=== PATIENT | female | born 1970 | race Caucasian/White ===

== ENCOUNTER → 2018-06-29 | Outpatient (CLI) | payer OTHER | END | disposition home or self-care (01) | LOC: CFH 14:47 | PROVIDERS: ATTEND Specialist | DX: Z12.31 Encounter for screening mammogram for malignant neoplasm of breast (principal) | CPT/HCPCS: 77063; 77067 ==

== ENCOUNTER → 2019-08-15 | Outpatient (CLI) | payer OTHER | END | disposition home or self-care (01) | LOC: CFH 13:25 | PROVIDERS: ATTEND Genetic Counselor, MS | DX: R92.2 Inconclusive mammogram (principal) | CPT/HCPCS: 76642; 77066; G0279 ==

== ENCOUNTER → 2021-05-14 | Outpatient (CLI) | payer OTHER | END | disposition home or self-care (01) | LOC: CVU 14:44 | PROVIDERS: ATTEND Nurse Practitioner Family | DX: I36.1 Nonrheumatic tricuspid (valve) insufficiency (principal); R00.2 Palpitations | CPT/HCPCS: 93306; 93356 ==